=== PATIENT | female | born 1990 | race Caucasian/White ===

== ENCOUNTER → 2017-12-23 09:18 | Outpatient (CLI) | payer OTHER, SELFPAY ==
[2017-12-23 11:09] LABS: Hematocrit 32.5 % (37-47); Hemoglobin 10.8 g/dl (12.0-15.0); Mean Corp Hgb Conc 33.2 g/gl (32-36); Mean Corpuscular Hgb 30.9 pg (27.0-32.0); Mean Corpuscular Volume 93.1 fL (81-99); Mean Platelet Vol. 9.4 fl (6.2-12.0); Platelet Count 300 K/mm3 (150-450); RBC Distribution Width CV 13.3 % (11.6-14.6); Red Blood Count 3.49 M/mm3 (4.2-5.4); Scan Indicated on CBC? Y/N NO; White Blood Count 8.1 K/mm3 (4.4-11.0)
[2017-12-23 11:28] LABS: Glucose Challenge Gest 1H 50g 150 mg/dL (70-140)
== END ==
PROVIDERS: Visit Provider Obstetrics & Gynecology
DX: Z34.83 Encounter for supervision of other normal pregnancy, third trimester (principal)
CPT/HCPCS: 36415; 82950; 85027

== ENCOUNTER → 2018-01-01 08:47 | Outpatient (CLI) | payer OTHER, SELFPAY ==
[2018-01-01 10:16] LABS: Glucose GTT-Gestation. Fasting 72 mg/dL (<105)
[2018-01-01 11:00] LABS: Glucose GTT-Gestational 1 Hr 123 mg/dL (<190)
[2018-01-01 11:44] LABS: Glucose GTT-Gestational 2 Hr 99 mg/dL (<165)
[2018-01-01 13:10] LABS: Glucose GTT-Gestational 3 Hr 71 L (<145)
== END ==
PROVIDERS: Visit Provider Obstetrics & Gynecology
DX: O24.912 Unspecified diabetes mellitus in pregnancy, second trimester (principal)
CPT/HCPCS: 36415; 82951; 82952

== ENCOUNTER → 2018-02-11 14:23 | Outpatient (CLI) | payer OTHER, SELFPAY ==
[2018-02-11 17:13] LABS: Group B Strep DNA By PCR Negative (Negative); Internal Control PASS; Probe Check PASS; Specimen Processing Control PASS
== END ==
PROVIDERS: Visit Provider Obstetrics & Gynecology
DX: Z36.85 Encounter for antenatal screening for Streptococcus B (principal)
CPT/HCPCS: 87081; 87653

== ENCOUNTER 2018-03-13 19:50 | Inpatient (IN) | payer OTHER, SELFPAY ==
[2018-03-13 19:27] VITALS: BMI 26.4
[2018-03-13 19:47] LABS: ROM Internal Control Test YES-OK TO RESULT pt. (Internal QC)
[2018-03-13 19:49] LABS: ROM Patient Test POSITIVE (Negative)
[2018-03-13] MEDS: Lactated Ringers 1,000 ML 50 ML IV ×2 (20:15→21:15)
[2018-03-13 20:27] LABS: Hematocrit 35.1 % (37-47); Hemoglobin 11.6 g/dl (12.0-15.0); Mean Corpuscular Hgb 29.1 pg (27.0-32.0); Mean Corpuscular Volume 88.2 fL (81-99); Mean Platelet Vol. 9.7 fl (6.2-12.0); Platelet Count 291 K/mm3 (150-450); RBC Distribution Width CV 14.6 % (11.6-14.6); RBC Distribution Width SD 47.4 fl (35.1-43.9); Red Blood Count 3.98 M/mm3 (4.2-5.4)
[2018-03-13 20:29] LABS: Scan Indicated on CBC? Y/N NO
[2018-03-13] MEDS: fentaNYL-bupivacaine (epidural) 100 ML BAG EPIDURAL (21:34)
[2018-03-13] MEDS: Oxytocin 30 units/NS 500 ml 30 UNITS/500 ML IV.SOLN 334 UNITS IV (23:40)
[2018-03-13] MEDS: Methylergonovine 0.2 MG/ML Ampul IM (23:43)
--- NOTE | 2018-03-13 23:54 | PCM.OB.VAG ---
Vaginal Delivery Maternal Presentation: Active Labor, Spontaneous Rupture of Membranes Amniotic Membrane Rupture Type: Spontaneous at home Amniotic Fluid Description: Clear Final TETE: 03/13/18 Final TETE Source: US <20 weeks Gestational age: 40 Weeks and 0 Days Date of Procedure: 03/13/18 Pre-Operative Diagnosis: IUP Post-Operative Diagnosis: IUP Surgery/ Procedure Performed: Spontaneous Vaginal Delivery Type of Anesthesia: Epidural Description of Procedure: Spontaneous vaginal delivery of a viable male from an occiput anterior presentation with Apgars of 9/9 with a normal three-vessel placenta and cord around the neck ?2 tight. No episiotomy or lacerations. Sponge counts okay. Delivery physician: Manuel Dave MD. Presentation: Vertex Placental Delivery Description: Spontaneous Placenta Disposition: [facility] Cord Vessel Description: 3 Vessels Cord Gases drawn per routine: ABG Cord Entanglement: Around neck x 2, tight Estimated Blood Loss: 250 cc Infant A gender: Male (1 minute): 9 (5 minute): 9 Episiotomy Description: None Laceration: None Medications given after delivery: IV Pitocin, IM Methergin Complications: None
--- NOTE | 2018-03-13 23:57 | PCM.DCVAG ---
Discharge Diet: No Restrictions Discharge Activity: May Shower, May Take a Tub Bath May resume sexual activity in: 4-6 weeks Additional Activity Instructions:: Nothing in the vagina for 4-6 weeks. You may return to work/school in 6 weeks. Call your doctor if you observe: Fever of 101 or Higher, Inability to urinate, Inability to have a bowel movement, Using more than one pad per hour Additional Instructions: If you experience any of the following, contact your healthcare provider. Bleeding that soaks a pad every hour for 2 hours Unrelieved incision or abdominal pain Swelling, redness, discharge or bleeding from your incision or episiotomy site Your incision begins to separate Problems urinating (including inability to urinate or burning while urinating). Visual changes Severe headache Flu-like symptoms Pain or redness in one of both of your breasts Pain, warmth, tenderness or swelling in your legs, especially the calf area Frequent nausea and vomiting Symptoms of depression or anxiety If you experience any of the following, call 911 or go to the nearest Emergency Room. Chest pain Problems breathing Seizure activity Partial or complete paralysis of a body part, slurred speech, weakness or drooping of the face, or a sudden inability to walk or hold your balance Allergies/Adverse Reactions: Allergies No Known Allergies Allergy (Verified 09/21/16 20:03) Medications to take at Discharge Vits [Prenatabs FA] 1 tablet PO DAILY 06/27/16 Please Follow Up With: Darci Eastman MD - [phone] When: Call to make an appointment with your doctor in 6 weeks. Primary Care Physician: Care Physician,No Primary [Primary Care Provider] -
--- NOTE | 2018-03-13 23:58 | DCINST_ITS ---
Discharge Diet: No Restrictions Discharge Activity: May Shower, May Take a Tub Bath May resume sexual activity in: 4-6 weeks Additional Activity Instructions:: Nothing in the vagina for 4-6 weeks. You may return to work/school in 6 weeks. Call your doctor if you observe: Fever of 101 or Higher, Inability to urinate, Inability to have a bowel movement, Using more than one pad per hour Additional Instructions: If you experience any of the following, contact your healthcare provider. * Bleeding that soaks a pad every hour for 2 hours * Unrelieved incision or abdominal pain * Swelling, redness, discharge or bleeding from your incision or episiotomy site * Your incision begins to separate * Problems urinating (including inability to urinate or burning while urinating) . * Visual changes * Severe headache * Flu-like symptoms * Pain or redness in one of both of your breasts * Pain, warmth, tenderness or swelling in your legs, especially the calf area * Frequent nausea and vomiting * Symptoms of depression or anxiety If you experience any of the following, call 911 or go to the nearest Emergency Room. * Chest pain * Problems breathing * Seizure activity * Partial or complete paralysis of a body part, slurred speech, weakness or drooping of the face, or a sudden inability to walk or hold your balance Allergies/Adverse Reactions: Allergies No Known Allergies Allergy (Verified 09/21/16 20:03) Medications to take at Discharge Vits [Prenatabs FA] 1 tablet PO DAILY 06/27/16 Please Follow Up With: Darci Eastman MD - [phone] When: Call to make an appointment with your doctor in 6 weeks. Primary Care Physician: Care Physician,No Primary [Primary Care Provider] -
[2018-03-14] MEDS: Oxytocin 30 units/NS 500 ml 30 UNITS/500 ML IV.SOLN 167 UNITS IV
[2018-03-14] MEDS: 0.9% Saline Lock 10 ML Syringe IV (01:00)
[2018-03-14 01:45] VITALS: BP 144/83; PULSE 96; RESP 18; TEMP 37.2
[2018-03-14] MEDS: Ibuprofen 600 MG Tablet PO ×3 (04:18→20:28)
[2018-03-14 04:33] VITALS: BP 145/79; PULSE 75; RESP 16; TEMP 36.5; O2SAT 96
[2018-03-14 08:42] VITALS: BP 144/80; PULSE 75; RESP 16; TEMP 36.6; O2SAT 98
--- NOTE | 2018-03-14 13:01 | PCM.PN.OB ---
Subjective: She without complaints. Breast-feeding going well. Denies any PIH symptoms. Wants to stay until tomorrow. - Physical Exam Vital Signs Temp Pulse Resp BP Pulse Ox 97.9 F 75 16 144/80 H 98 03/14/18 08:42 03/14/18 08:42 03/14/18 08:42 03/14/18 08:42 03/14/18 08:42 Oxygen Delivery Method Room Air Weight: 168 lb 10.458 oz Body Mass Index (BMI) 26.4 Intake and Output for Last 24 Hours 03/12/18 03/13/18 03/14/18 23:59 23:59 23:59 Intake Total 1482 / 1482 Output Total 675 / 675 Balance 807 / 807 Laboratory Tests Past 24 Hrs 03/13/18 03/13/18 03/13/18 19:00 20:15 20:15 WBC 9.0 RBC 3.98 L Hgb 11.6 L Hct 35.1 L MCV 88.2 MCH 29.1 MCHC 33.0 RDW 14.6 RDW Differential 47.4 H Plt Count 291 MPV 9.7 Vag Amniotic Fld Detect POSITIVE H Blood Type O POSITIVE Antibody Screen NEGATIVE Medical Necessity - Tobacco Use Smoking Status: Never smoker Assessment/Plan Doing well day #1. Continuing present care. Anticipate release tomorrow.
[2018-03-14 13:06] VITALS: BP 147/92; PULSE 68; RESP 16; TEMP 36.7; O2SAT 98
--- NOTE | 2018-03-14 14:24 | NURSING ---
1230 denies headache , blurred vision, SOB, and epigastric pain, continues to deny symptoms of bolld pressure .
[2018-03-14 16:00] VITALS: BP 139/72; PULSE 82; RESP 16; TEMP 36.2; O2SAT 97
[2018-03-14 20:30] VITALS: BP 128/77; PULSE 72; RESP 16; TEMP 36.7; O2SAT 99
[2018-03-15 02:35] VITALS: BP 126/53; PULSE 82; RESP 18; TEMP 36.8; O2SAT 98
[2018-03-15] MEDS: Ibuprofen 600 MG Tablet PO (03:58)
[2018-03-15 08:00] VITALS: BP 114/72; PULSE 74; RESP 18; TEMP 36.2
--- NOTE | 2018-03-15 09:22 | PCM.PN.OB ---
Subjective: Patient without complaints. Breast-feeding going well. Ready to go home today. - Physical Exam Vital Signs Temp Pulse Resp BP Pulse Ox 98.3 F 82 18 126/53 H 98 03/15/18 02:35 03/15/18 02:35 03/15/18 02:35 03/15/18 02:35 03/15/18 02:35 Oxygen Delivery Method Room Air Weight: 168 lb 10.458 oz Body Mass Index (BMI) 26.4 Intake and Output for Last 24 Hours 03/13/18 03/14/18 03/15/18 23:59 23:59 23:59 Intake Total 1482 / 1482 Output Total 675 / 675 Balance 807 / 807 Medical Necessity - Tobacco Use Smoking Status: Never smoker Assessment/Plan Doing well. Will release to home with routine instructions.
[2018-03-15 15:44] VITALS: BP 126/77; PULSE 72; RESP 18; TEMP 36.7
== END 2018-03-15 16:00 | disposition home or self-care (01) | DRG 775 ==
LOC: WPOUT 19:54
PROVIDERS: Admitting Provider Obstetrics & Gynecology; Visit Provider Obstetrics & Gynecology
DX: O48.0 Post-term pregnancy (principal); Z3A.40 40 weeks gestation of pregnancy; Z37.0 Single live birth
CPT/HCPCS: 59025; 59050; 84112; 85027; 86850; 86900; 99218; J7120; A4216; G0378

== ENCOUNTER → 2025-07-14 | Outpatient (CLI) | payer OTHER, SELFPAY ==
[2025-07-14 10:57] LABS: Hematocrit 42.9 % (37-47); Hemoglobin 14.9 g/dL (12.0-15.0); Immature Granulocytes Count 0.060 X10^3/uL (0.0-0.0); Mean Corp Hgb Conc 34.7 g/dL (32-36); Mean Corpuscular Volume 93.3 fL (81-99); Mean Platelet Vol. 9.6 fl (6.2-12.0); NRBC Flagged by Analyzer 0 % (0-5); Platelet Count 345 K/mm3 (150-450); RBC Distribution Width CV 11.9 % (11.6-14.6); RBC Distribution Width SD 40.9 fl (35.1-43.9); Red Blood Count 4.60 M/mm3 (4.2-5.4); White Blood Count 13.6 K/mm3 (4.4-11.0)
== END | disposition home or self-care (01) ==
PROVIDERS: Visit Provider Obstetrics & Gynecology
DX: N93.9 Abnormal uterine and vaginal bleeding, unspecified (principal)
CPT/HCPCS: 36415; 84443; 85025

== ENCOUNTER → 2025-07-21 | Outpatient (CLI) | payer OTHER, SELFPAY | END | disposition home or self-care (01) | LOC: US 15:16 | PROVIDERS: Referring Provider Obstetrics & Gynecology; Visit Provider Obstetrics & Gynecology | DX: N93.9 Abnormal uterine and vaginal bleeding, unspecified (principal) | CPT/HCPCS: 76830; 76856 ==